=== PATIENT | male | born 1940 | race Caucasian/White ===

== ENCOUNTER → 2017-04-11 | Outpatient (REF) | payer OTHER, MEDICARE ==
[~2017-04-11] MED LIST: ASPI1TAB PO; BENA20TA7 PO; CLAR5TAB PO; DULO30CA PO; HYDR50TA70 PO; LOPR1TAB7 PO; MIRA33504 PO; NAPR500T3 PO; OMEP40CA2 PO; REST0.05 OU; SERT-138 PO; SIMV40TA2 PO; ZETI10TA30 PO
[2017-04-12 11:13] LABS: ALBUMIN 3.9 GM/DL (3.2-5.2); ALBUMIN/GLOBULIN RATIO 1.15 (1.00-1.93); BILIRUBIN,TOTAL 0.4 MG/DL (0.2-1.0); CALCIUM LEVEL 8.6 MG/DL (8.8-10.2); CREATININE FOR GFR 1.29 MG/DL (0.70-1.30); GLOMERULAR FILTRATION RATE 57.3 (>42); POTASSIUM SERUM 4.9 MEQ/L (3.5-5.1); TOTAL PROTEIN 7.3 GM/DL (6.4-8.2)
[2017-04-12 11:18] LABS: WHITE BLOOD COUNT 8.4 K/mm3 (4.0-10.0)
[2017-04-12 11:19] LABS: BASO % 0.8 % (0.0-1.0); EOS % 6.2 % (0.0-3.0); LYMPH # 1.5 K/mm3 (1.5-4.5); LYMPH % 17.8 % (24.0-44.0); MEAN CORPUSCULAR HEMOGLOBIN 27.4 pg (27.0-33.0); MEAN CORPUSCULAR HGB CONC 32.8 g/dl (32.0-36.5); MEAN CORPUSCULAR VOLUME 83.4 fl (80.0-96.0); MONO % 5.4 % (0.0-5.0); NEUTROPHILS # 5.8 K/mm3 (1.8-7.7); NEUTROPHILS % 68.8 % (36.0-66.0); PLATELET COUNT, AUTOMATED 233 k/mm3 (150-450); RED CELL DISTRIBUTION WIDTH 14.6 % (11.5-14.5)
[2017-04-12 11:20] LABS: BASO # 0.1 K/mm3 (0.0-0.2); EOS # 0.5 K/mm3 (0.0-0.50); LARGE UNSTAINED CELL # 0.1 K/mm3 (0.0-0.4); MONO # 0.5 K/mm3 (0.0-0.8)
== END ==
LOC: M SFHCCLAY 14:31
PROVIDERS: ATTEND Family Medicine
DX: D51.8 Other vitamin B12 deficiency anemias (principal); I10 Essential (primary) hypertension; E78.5 Hyperlipidemia, unspecified

== ENCOUNTER 2017-05-10 07:43 | Outpatient (CLI) | payer OTHER ==
[~2017-05-10] VITALS: Ht 175.3 cm; Wt 95.7 kg
[~2017-05-10 07:43] MED LIST changes: +LIDOCAINE 2% INJ 100 MG/5 ML SDV (FOR ANES.) As Ordered ONE; +PROPOFOL 200 MG/20 ML VIAL As Ordered ONE
--- NOTE | 2017-05-10 09:10 | ROOR ---
Patient Name: Jin Moy Procedure Date: 05/10/2017 8:32 AM Date of : 1940 Age: 76 Room: [facility] Gender: Male Note Status: Finalized Procedure: Upper GI endoscopy Indications: Anemia, Heartburn, Suspected gastro-esophageal reflux disease Providers: Noah Matthews MD Referring MD: CHARLY OCHOA DO Requesting Provider: Medicines: Monitored Anesthesia Care Complications: No immediate complications. Procedure: Pre-Anesthesia Assessment: - Prior to the procedure, a History and Physical was performed, and patient medications and allergies were reviewed. The patient is competent. The risks and benefits of the procedure and the sedation options and risks were discussed with the patient. All questions were answered and informed consent was obtained. Patient identification and proposed procedure were verified by the physician, the nurse and the directional driller in the procedure room. Mental Status Examination: alert and oriented. Airway Examination: normal oropharyngeal airway and neck mobility. Respiratory Examination: clear to auscultation. CV Examination: normal. Prophylactic Antibiotics: The patient does not require prophylactic antibiotics. Prior Anticoagulants: The patient has taken no previous anticoagulant or antiplatelet agents. ASA Grade Assessment: III - A patient with severe systemic disease. After reviewing the risks and benefits, the patient was deemed in satisfactory condition to undergo the procedure. The anesthesia plan was to use monitored anesthesia care (MAC). Immediately prior to administration of medications, the patient was re-assessed for adequacy to receive sedatives. The heart rate, respiratory rate, oxygen saturations, blood pressure, adequacy of pulmonary ventilation, and response to care were monitored throughout the procedure. The physical status of the patient was re-assessed after the procedure. The Endoscope was introduced through the mouth, and advanced to the second part of duodenum. The upper GI endoscopy was accomplished without difficulty. The patient tolerated the procedure well. Findings: Savary-Infante Grade II (multiple lesions and folds, noncircumferential, with or without confluence) esophagitis with no bleeding was found in the lower third of the esophagus. Biopsies were taken with a cold forceps for histology. Verification of patient identification for the specimen was done by the physician and nurse using the patient's name, date and medical record number. Estimated blood loss was minimal. Diffuse severe mucosal changes characterized by congestion, erythema, granularity and inflammation were found in the entire examined stomach. Two biopsies were obtained with cold forceps for histology in the gastric antrum, as well as two biopsies in the gastric body and two biopsies in the gastric fundus. The duodenal bulb and second portion of the duodenum were normal. Biopsies for histology were taken with a cold forceps for evaluation of celiac disease. Impression: - Savary-Infante Grade II reflux esophagitis. Rule out Hanna's esophagus. Biopsied. - Congested, erythematous, granular and inflamed mucosa in the stomach. - Normal duodenal bulb and second portion of the duodenum. Biopsied. - Biopsies performed in the gastric antrum, in the gastric body and in the gastric fundus. Recommendation: - Patient has a contact number available for emergencies. The signs and symptoms of potential delayed complications were discussed with the patient. Return to normal activities tomorrow. Written discharge instructions were provided to the patient. - Resume previous diet. - Continue present medications. - Await pathology results. - Repeat upper endoscopy in 3 months to check healing. - Return to GI clinic in 2 months. - Telephone GI clinic for pathology results in 1 week. - Return to primary care physician. Noah Matthews MD Noah Matthews MD 05/10/2017 9:09:47 AM This report has been signed electronically. Number of Addenda: 0 Note Initiated On: 05/10/2017 8:32 AM Estimated Blood Loss: Estimated blood loss was minimal.
--- NOTE | 2017-05-10 09:14 | ROOR ---
Patient Name: Jin Moy Procedure Date: 05/10/2017 8:34 AM Date of : 1940 Age: 76 Room: [facility] Gender: Male Note Status: Finalized Procedure: Colonoscopy Indications: Change in bowel habits, Constipation Providers: Noah Matthews MD Referring MD: CHARLY OCHOA DO Requesting Provider: Medicines: Monitored Anesthesia Care Complications: No immediate complications. Procedure: Pre-Anesthesia Assessment: - Prior to the procedure, a History and Physical was performed, and patient medications and allergies were reviewed. The patient is competent. The risks and benefits of the procedure and the sedation options and risks were discussed with the patient. All questions were answered and informed consent was obtained. Patient identification and proposed procedure were verified by the physician, the nurse and the supervisor diagnostic in the procedure room. Mental Status Examination: alert and oriented. Airway Examination: normal oropharyngeal airway and neck mobility. Respiratory Examination: clear to auscultation. CV Examination: normal. Prophylactic Antibiotics: The patient does not require prophylactic antibiotics. Prior Anticoagulants: The patient has taken no previous anticoagulant or antiplatelet agents. ASA Grade Assessment: III - A patient with severe systemic disease. After reviewing the risks and benefits, the patient was deemed in satisfactory condition to undergo the procedure. The anesthesia plan was to use monitored anesthesia care (MAC). Immediately prior to administration of medications, the patient was re-assessed for adequacy to receive sedatives. The heart rate, respiratory rate, oxygen saturations, blood pressure, adequacy of pulmonary ventilation, and response to care were monitored throughout the procedure. The physical status of the patient was re-assessed after the procedure. The Colonoscope was introduced through the anus and advanced to the terminal ileum, with identification of the appendiceal orifice and IC valve. The colonoscopy was performed without difficulty. The patient tolerated the procedure well. The quality of the bowel preparation was adequate to identify polyps 6 mm and larger in size and fair. The terminal ileum, ileocecal valve, appendiceal orifice, and rectum were photographed. Scope insertion time was 2 minutes. Scope withdrawal time was 8 minutes. The total duration of the procedure was 11 minutes. Findings: The perianal and digital rectal examinations were normal. The terminal ileum appeared normal. Many small and large-mouthed diverticula were found from sigmoid to cecum. There was no evidence of diverticular bleeding. Non-bleeding external and internal hemorrhoids were found during retroflexion. The hemorrhoids were small. The exam was otherwise without abnormality. Impression: - Preparation of the colon was fair. - The examined portion of the ileum was normal. - Moderate diverticulosis from sigmoid to cecum. There was no evidence of diverticular bleeding. - Non-bleeding external and internal hemorrhoids. - The examination was otherwise normal. - No specimens collected. Recommendation: - Patient has a contact number available for emergencies. The signs and symptoms of potential delayed complications were discussed with the patient. Return to normal activities tomorrow. Written discharge instructions were provided to the patient. - High fiber diet. - Continue present medications. - Return to GI clinic as previously scheduled. Noah Matthews MD Noah Matthews MD 05/10/2017 9:13:45 AM This report has been signed electronically. Number of Addenda: 0 Note Initiated On: 05/10/2017 8:34 AM Estimated Blood Loss: Estimated blood loss: none.
[2017-05-10 09:40] VITALS: BP 139/67
[2017-05-10] MEDS ORDERED: NS 1,000 ML IV ONE (10:00)
== END 2017-05-10 09:45 | disposition home or self-care (01) ==
LOC: M OPP 07:43
PROVIDERS: ATTEND Internal Medicine Gastroenterology
DX: R19.4 Change in bowel habit (principal); K92.1 Melena; K59.00 Constipation, unspecified; K57.30 Diverticulosis of large intestine without perforation or abscess without bleeding; K64.8 Other hemorrhoids; K64.4 Residual hemorrhoidal skin tags; D64.9 Anemia, unspecified; R12 Heartburn; K21.0 Gastro-esophageal reflux disease with esophagitis; K31.89 Other diseases of stomach and duodenum; I12.9 Hypertensive chronic kidney disease with stage 1 through stage 4 chronic kidney disease, or unspecified chronic kidney disease; E78.5 Hyperlipidemia, unspecified; E16.1 Other hypoglycemia; R23.3 Spontaneous ecchymoses; M19.90 Unspecified osteoarthritis, unspecified site; M54.2 Cervicalgia; M54.89 Other dorsalgia; M25.60 Stiffness of unspecified joint, not elsewhere classified; L20.81 Atopic neurodermatitis; F41.9 Anxiety disorder, unspecified; F32.9 Major depressive disorder, single episode, unspecified; R56.9 Unspecified convulsions; R06.02 Shortness of breath; Z85.46 Personal history of malignant neoplasm of prostate; I73.9 Peripheral vascular disease, unspecified; M21.372 Foot drop, left foot; N18.9 Chronic kidney disease, unspecified; J98.4 Other disorders of lung; Z87.891 Personal history of nicotine dependence; Z88.8 Allergy status to other drugs, medicaments and biological substances; Z91.040 Latex allergy status; Z79.82 Long term (current) use of aspirin; Z79.899 Other long term (current) drug therapy

== ENCOUNTER → 2018-04-26 | Outpatient (REF) | payer OTHER, MEDICARE ==
[2018-04-26 11:29] LABS: BASO # 0.1 10^3/uL (0.0-0.2); BASO % 0.6 % (0.0-1.0); EOS # 0.5 10^3/uL (0.0-0.50); EOS % 6.2 % (0.0-3.0); HEMATOCRIT 36.9 % (42.0-52.0); HEMOGLOBIN 12.1 g/dl (13.5-17.5); IMMATURE GRANULOCYTE % 0.8 % (0-3.0); LYMPH # 1.6 10^3/uL (1.5-4.5); LYMPH % 18.7 % (24.0-44.0); MEAN CORPUSCULAR HGB CONC 32.8 g/dl (32.0-36.5); MEAN CORPUSCULAR VOLUME 82.4 fl (80.0-96.0); MONO # 0.6 10^3/uL (0.0-0.8); MONO % 7.3 % (0.0-5.0); NEUTROPHILS # 5.5 10^3/uL (1.8-7.7); NEUTROPHILS % 66.4 % (36.0-66.0); PLATELET COUNT, AUTOMATED 242 10^3/uL (150-450); RED BLOOD COUNT 4.48 10^6/uL (4.30-6.10); RED CELL DISTRIBUTION WIDTH 14.1 % (11.5-14.5); WHITE BLOOD COUNT 8.4 10^3/uL (4.0-10.0)
[2018-04-26 11:42] LABS: ALBUMIN 3.7 GM/DL (3.2-5.2); ALBUMIN/GLOBULIN RATIO 1.16 (1.00-1.93); ALKALINE PHOSPHATASE 74 U/L (45-117); ALT/SGPT 57 U/L (12-78); ANION GAP 11 MEQ/L (8-16); AST/SGOT 32 U/L (7-37); BILIRUBIN,TOTAL 0.5 MG/DL (0.2-1.0); BLOOD UREA NITROGEN 22 MG/DL (7-18); CARBON DIOXIDE LEVEL 27 MEQ/L (21-32); CHLORIDE LEVEL 100 MEQ/L (98-107); CHOLESTEROL LEVEL 159 MG/DL (<200); CHOLESTEROL RISK RATIO 3.533 (<5); CREATININE FOR GFR 1.33 MG/DL (0.70-1.30); GLOMERULAR FILTRATION RATE 55.2 (>42); GLUCOSE, FASTING 101 MG/DL (70-100); HDL CHOLESTEROL 45 MG/DL (>40); IRON (FE) 149 UG/DL (65-175); LDL CHOLESTEROL 69.2 MG/DL (<100); NON-HDL-C 114 MG/DL; PROSTATIC SPECIFIC AG MONITOR 0.05 NG/ML (< 4.0); SODIUM LEVEL 138 MEQ/L (136-145); TOTAL PROTEIN 6.9 GM/DL (6.4-8.2); TRIGLYCERIDES LEVEL 224 MG/DL (<150)
[2018-04-26 11:46] LABS: VITAMIN B12 LEVEL 197 PG/ML (247-911)
[2018-04-26 11:47] LABS: FOLATE 6.7 NG/ML (>5.4)
== END ==
LOC: M SFHCCLAY 08:13
DX: D51.8 Other vitamin B12 deficiency anemias (principal); E78.5 Hyperlipidemia, unspecified; I10 Essential (primary) hypertension; D64.9 Anemia, unspecified; C61 Malignant neoplasm of prostate

== ENCOUNTER 2018-07-06 11:11 | Inpatient (IN) | payer MEDICARE, OTHER ==
[2018-07-06 12:24] LABS: VENOUS HCO3 23.2 MEQ/L (23.0-27.0); VENOUS O2 SATURATION 83.8 % (60.0-80.0); VENOUS PARTIAL PRESSURE CO2 41.3 mmHg (38.0-50.0); VENOUS PARTIAL PRESSURE O2 50.4 mmHg (30.0-50.0); VENOUS PH 7.368 UNITS (7.330-7.430); VENOUS STANDARD HCO3 22.5 MEQ/L; VENOUS TOTAL CO2 24.5 MEQ/L (24.0-28.0)
[2018-07-06 12:29] LABS: BASO # 0.1 10^3/uL (0.0-0.2); BASO % 0.6 % (0.0-1.0); EOS # 0.1 10^3/uL (0.0-0.50); EOS % 0.9 % (0.0-3.0); HEMOGLOBIN 14.2 g/dl (13.5-17.5); IMMATURE GRANULOCYTE % 0.7 % (0-3.0); LYMPH # 1.1 10^3/uL (1.5-4.5); LYMPH % 10.6 % (24.0-44.0); MEAN CORPUSCULAR HGB CONC 33.8 g/dl (32.0-36.5); MEAN CORPUSCULAR VOLUME 82.8 fl (80.0-96.0); MONO # 0.8 10^3/uL (0.0-0.8); MONO % 7.6 % (0.0-5.0); NEUTROPHILS # 8.1 10^3/uL (1.8-7.7); NEUTROPHILS % 79.6 % (36.0-66.0); PLATELET COUNT, AUTOMATED 305 10^3/uL (150-450); RED BLOOD COUNT 5.07 10^6/uL (4.30-6.10); RED CELL DISTRIBUTION WIDTH 16.9 % (11.5-14.5); WHITE BLOOD COUNT 10.1 10^3/uL (4.0-10.0)
[2018-07-06 12:40] LABS: INR 0.96; PROTHROMBIN TIME 12.9 SECONDS (12.1-14.4)
[2018-07-06 12:55] LABS: INFLUENZA A AMPLIFICATION NEGATIVE (NEGATIVE); INFLUENZA B AMPLIFICATION NEGATIVE (NEGATIVE)
[2018-07-06 13:00] LABS: LACTIC ACID SEPSIS PROTOCOL 1.8 MMOL/L (0.4-2.0)
[2018-07-06 13:07] LABS: ACETAMINOPHEN LEVEL < 2.0 UG/ML (10.0-30.0); ALBUMIN 4.1 GM/DL (3.2-5.2); ALBUMIN/GLOBULIN RATIO 1.14 (1.00-1.93); ALKALINE PHOSPHATASE 76 U/L (45-117); ALT/SGPT 46 U/L (12-78); ANION GAP 12 MEQ/L (8-16); AST/SGOT 35 U/L (7-37); BILIRUBIN,DIRECT 0.2 MG/DL (0.0-0.2); BILIRUBIN,TOTAL 0.5 MG/DL (0.2-1.0); BLOOD UREA NITROGEN 33 MG/DL (7-18); CALCIUM LEVEL 9.6 MG/DL (8.8-10.2); CARBON DIOXIDE LEVEL 27 MEQ/L (21-32); CHLORIDE LEVEL 103 MEQ/L (98-107); CPK CREATINE PHOSPHOKINASE 79 U/L (39-308); CREATININE FOR GFR 1.47 MG/DL (0.70-1.30); ETHYL ALCOHOL (ETHANOL) < 0.003 % (0.000-0.010); GLOMERULAR FILTRATION RATE 49.2 (>42); GLUCOSE, FASTING 108 MG/DL (70-100); NT-PRO BNP 494 PG/ML (<450); POTASSIUM SERUM 4.8 MEQ/L (3.5-5.1); SALICYLATE LEVEL < 1.7 MG/DL (5.0-30.0); SODIUM LEVEL 142 MEQ/L (136-145); THYROID STIMULATING HORMONE 0.746 uIU/ML (0.358-3.740); TOTAL PROTEIN 7.7 GM/DL (6.4-8.2); TROPONIN I < 0.02 NG/ML (< 0.10)
[2018-07-06] MEDS: NS 1,000 ML IV ×3 (14:15→21:21)
[2018-07-06 15:58] LABS: MAGNESIUM LEVEL 1.8 MG/DL (1.8-2.4)
[2018-07-06] MEDS: LORazepam 2 MG/ML VIAL (J2060) IV (16:07)
[2018-07-06 16:14] LABS: FOLATE 13.7 NG/ML
[2018-07-06 16:49] LABS: AMMONIA 14 uMOL/L (<32)
[2018-07-06 19:06] LABS: AMMONIA 17 uMOL/L (<32)
[2018-07-06] MEDS ORDERED: DOCUSATE SODIUM 100 MG CAP PO (19:45)
[2018-07-06] MEDS ORDERED: hydrOXYzine 25 MG TAB PO (20:00)
[2018-07-06] MEDS ORDERED: NAPROXEN 250 MG TAB PO (20:00)
[2018-07-06] MEDS: DULoxetine 30 MG CAP (CYMBALTA) PO (22:39)
[2018-07-06] MEDS: EZETIMIBE 10 MG TAB (ZETIA) PO (22:39)
[2018-07-06] MEDS: SIMVASTATIN 40 MG TAB PO (22:39)
[2018-07-06] MEDS: HEPARIN SOD (PORCINE) 5000 UNITS/ML VIAL SC (22:39)
[2018-07-06] MEDS: miSOPROStol 100 MCG TAB (S0191) PO (22:40)
[2018-07-06] MEDS: METOPROLOL TARTRATE 100 MG TAB PO (22:41)
[2018-07-07] MEDS: LORazepam 2 MG/ML VIAL (J2060) IV (03:12)
[2018-07-07 07:12] LABS: HEMATOCRIT 37.3 % (42.0-52.0); MEAN CORPUSCULAR HEMOGLOBIN 27.9 pg (27.0-33.0); MEAN CORPUSCULAR HGB CONC 32.4 g/dl (32.0-36.5); MEAN CORPUSCULAR VOLUME 86.1 fl (80.0-96.0); PLATELET COUNT, AUTOMATED 264 10^3/uL (150-450); RED BLOOD COUNT 4.33 10^6/uL (4.30-6.10); RED CELL DISTRIBUTION WIDTH 17.1 % (11.5-14.5); WHITE BLOOD COUNT 9.1 10^3/uL (4.0-10.0)
[2018-07-07 07:20] LABS: HEMOGLOBIN 12.1 g/dl (13.5-17.5)
[2018-07-07 08:03] LABS: ANION GAP 8 MEQ/L (8-16); BLOOD UREA NITROGEN 32 MG/DL (7-18); CALCIUM LEVEL 8.3 MG/DL (8.8-10.2); CARBON DIOXIDE LEVEL 27 MEQ/L (21-32); CHLORIDE LEVEL 109 MEQ/L (98-107); CREATININE FOR GFR 1.38 MG/DL (0.70-1.30); GLOMERULAR FILTRATION RATE 52.9 (>42); GLUCOSE, FASTING 116 MG/DL (70-100); POTASSIUM SERUM 4.7 MEQ/L (3.5-5.1); SODIUM LEVEL 144 MEQ/L (136-145)
[2018-07-07] MEDS: PANTOPRAZOLE 40MG TAB (PROTONIX) PO (10:01)
[2018-07-07] MEDS: METOPROLOL TARTRATE 100 MG TAB PO ×2 (10:01→22:05)
[2018-07-07] MEDS: CYANOCOBALAMIN 500 MCG TAB PO (10:01)
[2018-07-07] MEDS: DULoxetine 30 MG CAP (CYMBALTA) PO (10:01)
[2018-07-07] MEDS: miSOPROStol 100 MCG TAB (S0191) PO ×3 (10:02→22:06)
[2018-07-07] MEDS: PRIMIDONE 50 MG TAB PO (10:02)
[2018-07-07] MEDS: ASPIRIN 81 MG ENTERIC TAB PO (10:02)
[2018-07-07] MEDS: HEPARIN SOD (PORCINE) 5000 UNITS/ML VIAL SC ×2 (10:03→22:05)
[2018-07-07] MEDS: FOLIC ACID 1 MG TAB PO (14:06)
[2018-07-07] MEDS: MULTIVITAMINS/MINERALS THERAP 1 TAB PO (14:06)
[2018-07-07] MEDS: LORazepam 0.5 MG TAB PO ×3 (14:06→22:05)
[2018-07-07] MEDS: THIAMINE 100 MG TAB PO (14:07)
[2018-07-07] MEDS ORDERED: LORazepam 2 MG/ML VIAL (J2060) IM (16:15)
[2018-07-07] MEDS: SIMVASTATIN 40 MG TAB PO (22:05)
[2018-07-07] MEDS: EZETIMIBE 10 MG TAB (ZETIA) PO (22:05)
[2018-07-07] MEDS ORDERED: NS 1,000 ML IV (22:30)
[2018-07-08] MEDS: PANTOPRAZOLE 40MG TAB (PROTONIX) PO (09:49)
[2018-07-08] MEDS: MULTIVITAMINS/MINERALS THERAP 1 TAB PO (09:49)
[2018-07-08] MEDS: CYANOCOBALAMIN 500 MCG TAB PO (09:49)
[2018-07-08] MEDS: THIAMINE 100 MG TAB PO (09:49)
[2018-07-08] MEDS: DULoxetine 30 MG CAP (CYMBALTA) PO (09:50)
[2018-07-08] MEDS: ASPIRIN 81 MG ENTERIC TAB PO (09:50)
[2018-07-08] MEDS: LORazepam 0.5 MG TAB PO ×4 (09:50→21:27)
[2018-07-08] MEDS: PRIMIDONE 50 MG TAB PO (09:51)
[2018-07-08] MEDS: FOLIC ACID 1 MG TAB PO (09:51)
[2018-07-08] MEDS: HEPARIN SOD (PORCINE) 5000 UNITS/ML VIAL SC ×2 (09:51→21:28)
[2018-07-08] MEDS: miSOPROStol 100 MCG TAB (S0191) PO ×3 (09:52→21:27)
[2018-07-08] MEDS: METOPROLOL TARTRATE 100 MG TAB PO ×2 (09:53→21:27)
[2018-07-08 10:52] LABS: HEMATOCRIT 37.6 % (42.0-52.0); HEMOGLOBIN 12.2 g/dl (13.5-17.5); MEAN CORPUSCULAR HGB CONC 32.4 g/dl (32.0-36.5); MEAN CORPUSCULAR VOLUME 86.2 fl (80.0-96.0); PLATELET COUNT, AUTOMATED 229 10^3/uL (150-450); RED BLOOD COUNT 4.36 10^6/uL (4.30-6.10); RED CELL DISTRIBUTION WIDTH 16.7 % (11.5-14.5); WHITE BLOOD COUNT 7.6 10^3/uL (4.0-10.0)
[2018-07-08 11:22] LABS: ANION GAP 8 MEQ/L (8-16); BLOOD UREA NITROGEN 22 MG/DL (7-18); CALCIUM LEVEL 8.2 MG/DL (8.8-10.2); CARBON DIOXIDE LEVEL 28 MEQ/L (21-32); CHLORIDE LEVEL 104 MEQ/L (98-107); CREATININE FOR GFR 1.15 MG/DL (0.70-1.30); GLOMERULAR FILTRATION RATE > 60.0 (>42); GLUCOSE, FASTING 116 MG/DL (70-100); POTASSIUM SERUM 4.1 MEQ/L (3.5-5.1); SODIUM LEVEL 140 MEQ/L (136-145)
[2018-07-08 14:11] LABS: CERULOPLASMIN 28.2 mg/dL (16.0-31.0)
[2018-07-08] MEDS: SIMVASTATIN 40 MG TAB PO (21:27)
[2018-07-08] MEDS: EZETIMIBE 10 MG TAB (ZETIA) PO (21:27)
[2018-07-09 07:42] LABS: HEMATOCRIT 38.3 % (42.0-52.0); HEMOGLOBIN 12.5 g/dl (13.5-17.5); MEAN CORPUSCULAR HEMOGLOBIN 27.8 pg (27.0-33.0); MEAN CORPUSCULAR HGB CONC 32.6 g/dl (32.0-36.5); MEAN CORPUSCULAR VOLUME 85.1 fl (80.0-96.0); PLATELET COUNT, AUTOMATED 261 10^3/uL (150-450); RED CELL DISTRIBUTION WIDTH 16.3 % (11.5-14.5); WHITE BLOOD COUNT 7.2 10^3/uL (4.0-10.0)
[2018-07-09 08:09] LABS: ANION GAP 5 MEQ/L (8-16); BLOOD UREA NITROGEN 22 MG/DL (7-18); CALCIUM LEVEL 8.7 MG/DL (8.8-10.2); CARBON DIOXIDE LEVEL 31 MEQ/L (21-32); CHLORIDE LEVEL 103 MEQ/L (98-107); CREATININE FOR GFR 1.12 MG/DL (0.70-1.30); GLOMERULAR FILTRATION RATE > 60.0 (>42); GLUCOSE, FASTING 101 MG/DL (70-100); SODIUM LEVEL 139 MEQ/L (136-145)
[2018-07-09] MEDS: CYANOCOBALAMIN 500 MCG TAB PO (09:43)
[2018-07-09] MEDS: FOLIC ACID 1 MG TAB PO (09:44)
[2018-07-09] MEDS: THIAMINE 100 MG TAB PO (09:44)
[2018-07-09] MEDS: ASPIRIN 81 MG ENTERIC TAB PO (09:44)
[2018-07-09] MEDS: PANTOPRAZOLE 40MG TAB (PROTONIX) PO (09:45)
[2018-07-09] MEDS: DULoxetine 30 MG CAP (CYMBALTA) PO (09:45)
[2018-07-09] MEDS: miSOPROStol 100 MCG TAB (S0191) PO ×3 (09:45→20:47)
[2018-07-09] MEDS: MULTIVITAMINS/MINERALS THERAP 1 TAB PO (09:46)
[2018-07-09] MEDS: METOPROLOL TARTRATE 100 MG TAB PO ×2 (09:48→20:50)
[2018-07-09] MEDS: LORazepam 0.5 MG TAB PO ×3 (09:48→20:47)
[2018-07-09] MEDS: HEPARIN SOD (PORCINE) 5000 UNITS/ML VIAL SC ×2 (09:49→20:49)
[2018-07-09] MEDS: BENAZEPRIL 20 MG TAB PO (14:20)
[2018-07-09] MEDS: hydroCHLOROthiazide 25 MG TAB PO (14:21)
[2018-07-09] MEDS: SIMVASTATIN 40 MG TAB PO (20:47)
[2018-07-09] MEDS: zolPIDEM TARTRATE 10MG TAB PO (20:47)
[2018-07-09] MEDS: EZETIMIBE 10 MG TAB (ZETIA) PO (20:47)
[2018-07-09] MEDS: NAPROXEN 250 MG TAB PO (20:48)
[2018-07-10 06:15] LABS: HEMATOCRIT 36.3 % (42.0-52.0); HEMOGLOBIN 11.7 g/dl (13.5-17.5); MEAN CORPUSCULAR HEMOGLOBIN 27.6 pg (27.0-33.0); MEAN CORPUSCULAR HGB CONC 32.2 g/dl (32.0-36.5); MEAN CORPUSCULAR VOLUME 85.6 fl (80.0-96.0); PLATELET COUNT, AUTOMATED 225 10^3/uL (150-450); RED BLOOD COUNT 4.24 10^6/uL (4.30-6.10); RED CELL DISTRIBUTION WIDTH 16.1 % (11.5-14.5); WHITE BLOOD COUNT 7.2 10^3/uL (4.0-10.0)
[2018-07-10 06:39] LABS: ANION GAP 5 MEQ/L (8-16); BLOOD UREA NITROGEN 19 MG/DL (7-18); CALCIUM LEVEL 8.3 MG/DL (8.8-10.2); CARBON DIOXIDE LEVEL 32 MEQ/L (21-32); CHLORIDE LEVEL 101 MEQ/L (98-107); CREATININE FOR GFR 1.16 MG/DL (0.70-1.30); GLOMERULAR FILTRATION RATE > 60.0 (>42); GLUCOSE, FASTING 96 MG/DL (70-100); POTASSIUM SERUM 4.8 MEQ/L (3.5-5.1); SODIUM LEVEL 138 MEQ/L (136-145)
[2018-07-10] MEDS: THIAMINE 100 MG TAB PO (08:48)
[2018-07-10] MEDS: HEPARIN SOD (PORCINE) 5000 UNITS/ML VIAL SC ×2 (08:48→21:11)
[2018-07-10] MEDS: DULoxetine 30 MG CAP (CYMBALTA) PO ×2 (08:48→14:57)
[2018-07-10] MEDS: PANTOPRAZOLE 40MG TAB (PROTONIX) PO (08:48)
[2018-07-10] MEDS: NAPROXEN 250 MG TAB PO ×2 (08:48→21:11)
[2018-07-10] MEDS: CYANOCOBALAMIN 500 MCG TAB PO (08:49)
[2018-07-10] MEDS: BENAZEPRIL 20 MG TAB PO (08:49)
[2018-07-10] MEDS: miSOPROStol 100 MCG TAB (S0191) PO ×3 (08:50→21:11)
[2018-07-10] MEDS: LORazepam 0.5 MG TAB PO ×2 (08:50→21:10)
[2018-07-10] MEDS: ASPIRIN 81 MG ENTERIC TAB PO (08:50)
[2018-07-10] MEDS: FOLIC ACID 1 MG TAB PO (08:50)
[2018-07-10] MEDS: METOPROLOL TARTRATE 100 MG TAB PO ×2 (08:50→21:11)
[2018-07-10] MEDS: hydroCHLOROthiazide 25 MG TAB PO (08:50)
[2018-07-10] MEDS: MULTIVITAMINS/MINERALS THERAP 1 TAB PO (08:50)
[2018-07-10] MEDS ORDERED: BENAZEPRIL 20 MG TAB PO (09:00)
[2018-07-10] MEDS: SIMVASTATIN 40 MG TAB PO (21:09)
[2018-07-10] MEDS: zolPIDEM TARTRATE 10MG TAB PO (21:10)
[2018-07-10] MEDS: EZETIMIBE 10 MG TAB (ZETIA) PO (21:11)
[2018-07-11 06:01] LABS: HEMATOCRIT 36.3 % (42.0-52.0); HEMOGLOBIN 11.9 g/dl (13.5-17.5); MEAN CORPUSCULAR HEMOGLOBIN 27.5 pg (27.0-33.0); MEAN CORPUSCULAR HGB CONC 32.8 g/dl (32.0-36.5); MEAN CORPUSCULAR VOLUME 83.8 fl (80.0-96.0); PLATELET COUNT, AUTOMATED 217 10^3/uL (150-450); RED BLOOD COUNT 4.33 10^6/uL (4.30-6.10); RED CELL DISTRIBUTION WIDTH 15.9 % (11.5-14.5); WHITE BLOOD COUNT 6.8 10^3/uL (4.0-10.0)
[2018-07-11 06:24] LABS: ANION GAP 8 MEQ/L (8-16); BLOOD UREA NITROGEN 19 MG/DL (7-18); CALCIUM LEVEL 8.4 MG/DL (8.8-10.2); CARBON DIOXIDE LEVEL 28 MEQ/L (21-32); CHLORIDE LEVEL 100 MEQ/L (98-107); CREATININE FOR GFR 1.06 MG/DL (0.70-1.30); GLOMERULAR FILTRATION RATE > 60.0 (>42); GLUCOSE, FASTING 97 MG/DL (70-100); POTASSIUM SERUM 4.1 MEQ/L (3.5-5.1); SODIUM LEVEL 136 MEQ/L (136-145)
[2018-07-11] MEDS: CYANOCOBALAMIN 500 MCG TAB PO (09:47)
[2018-07-11] MEDS: PANTOPRAZOLE 40MG TAB (PROTONIX) PO (09:47)
[2018-07-11] MEDS: ASPIRIN 81 MG ENTERIC TAB PO (09:48)
[2018-07-11] MEDS: DULoxetine 30 MG CAP (CYMBALTA) PO (09:48)
[2018-07-11] MEDS: MULTIVITAMINS/MINERALS THERAP 1 TAB PO (09:48)
[2018-07-11] MEDS: BENAZEPRIL 20 MG TAB PO (09:48)
[2018-07-11] MEDS: THIAMINE 100 MG TAB PO (09:48)
[2018-07-11] MEDS: hydroCHLOROthiazide 25 MG TAB PO (09:48)
[2018-07-11] MEDS: NAPROXEN 250 MG TAB PO (09:49)
[2018-07-11] MEDS: FOLIC ACID 1 MG TAB PO (09:49)
[2018-07-11] MEDS: LORazepam 0.5 MG TAB PO (09:49)
[2018-07-11] MEDS: miSOPROStol 100 MCG TAB (S0191) PO (09:49)
[2018-07-11] MEDS: METOPROLOL TARTRATE 100 MG TAB PO (09:50)
[2018-07-11] MEDS: HEPARIN SOD (PORCINE) 5000 UNITS/ML VIAL SC (09:50)
[2018-07-12 08:06] LABS: VITAMIN B1 LEVEL WHOLE BLOOD 89.9 nmol/L (66.5-200.0)
== END 2018-07-11 13:25 | disposition home or self-care (01) | DRG 897 ==
LOC: M ED 11:11 → M ED INP 19:45 → M MS5PR 21:30
DX: F10.232 Alcohol dependence with withdrawal with perceptual disturbance (principal); F32.3 Major depressive disorder, single episode, severe with psychotic features; N17.9 Acute kidney failure, unspecified; I10 Essential (primary) hypertension; K21.9 Gastro-esophageal reflux disease without esophagitis; F42.9 Obsessive-compulsive disorder, unspecified; Z85.46 Personal history of malignant neoplasm of prostate; Z79.899 Other long term (current) drug therapy; Z79.82 Long term (current) use of aspirin; M19.90 Unspecified osteoarthritis, unspecified site; M54.5 Low back pain; D51.3 Other dietary vitamin B12 deficiency anemia; E78.5 Hyperlipidemia, unspecified; F41.9 Anxiety disorder, unspecified; Z87.891 Personal history of nicotine dependence; K57.30 Diverticulosis of large intestine without perforation or abscess without bleeding; Z91.040 Latex allergy status; Z88.8 Allergy status to other drugs, medicaments and biological substances; I71.4 Abdominal aortic aneurysm, without rupture; J30.9 Allergic rhinitis, unspecified; Z96.641 Presence of right artificial hip joint; F03.90 Unspecified dementia, unspecified severity, without behavioral disturbance, psychotic disturbance, mood disturbance, and anxiety; G89.29 Other chronic pain

== ENCOUNTER → 2019-06-19 | Outpatient (REF) | payer OTHER, MEDICARE ==
[~2019-06-19] MED LIST changes: -ASPI1TAB PO; +ASPI81TA26 PO; +CYAN100049 PO; +CYMB1CAP5 PO; +DULO1CAP5 PO; -DULO30CA PO; +DULO30CA9 PO; +FOLI1TAB11 PO; -LIDOCAINE 2% INJ 100 MG/5 ML SDV (FOR ANES.) As Ordered ONE; +MISO100T22 PO; +NAPR-885 PO; -NAPR500T3 PO; +PANT40TA3 PO; +PRIM50TA6 PO; -PROPOFOL 200 MG/20 ML VIAL As Ordered ONE; +THIA100TA PO; +VITMTA PO; +ZETI10TA16 PO; -ZETI10TA30 PO
== END ==
LOC: M SFHCCLAY 16:36
PROVIDERS: ATTEND Family Medicine
DX: I10 Essential (primary) hypertension (principal); E78.5 Hyperlipidemia, unspecified; Z53.9 Procedure and treatment not carried out, unspecified reason